=== PATIENT | male | born 1955 | race African-American/Black ===

== ENCOUNTER 2021-05-03 08:21 | Emergency (ER) | payer OTHER ==
[~2021-05-03] VITALS: Ht 177.8 cm; Wt 70.5 kg
[2021-05-03 08:32] VITALS: BP 197/120
[2021-05-03] MEDS ORDERED: AMLO-187 PO (08:37)
--- NOTE | 2021-05-03 08:38 | PHYS DOC ---
General Adult EDM: Chief Complaint: MEDICATION REFILL HPI: HPI: Patient is a 66-year-old male coming in for medication refill his amlodipine. Patient states he has been on amlodipine for many years and has been tolerating it well. States he ran out about 3 days ago. Is in the process of changing primary care providers and is not able to get an appointment for 3 weeks. Patient denies any symptoms. Has his Covid vaccines. Review of Systems: Review of Systems: All other systems within normal limits except for as noted in the HPI Physical Exam: PE: Constitutional: Well developed, well nourished, no acute distress, non-toxic appearance. [] HENT: Normocephalic, atraumatic, bilateral external ears normal, nose normal. [] Eyes: PERRLA, conjunctiva normal, no discharge. [] Neck: No rigidity, supple, no stridor. [] Cardiovascular: Regular rate and rhythm, brisk cap refill [] Lungs & Thorax: Non labored symmetric respirations, no tachypnea or respiratory distress [] Abdomen: Soft, nondistended. Skin: Warm, dry, no erythema, no rash. [] Back: Unremarkable Extremities: No deformities, range of motion grossly intact, no lower extremity edema [] Neurologic: Alert and oriented X 3, no focal deficits noted. [] Psychologic: Affect normal, judgement normal, mood normal. [] EKG: EKG: [] Radiology/Procedures: Radiology/Procedures: [] Heart Score: C/O Chest Pain: No Risk Factors: Risk Factors: DM, Current or recent (<one month) smoker, HTN, HLP, family history of CAD, obesity. Risk Scores: Score 0 - 3: 2.5% MACE over next 6 weeks - Discharge Home Score 4 - 6: 20.3% MACE over next 6 weeks - Admit for Clinical Observation Score 7 - 10: 72.7% MACE over next 6 weeks - Early Invasive Strategies Course & Med Decision Making: Course & Med Decision Making Pertinent Labs and Imaging studies reviewed. (See chart for details) [] Dragon Disclaimer: Dragon Disclaimer: This electronic medical record was generated, in whole or in part, using a voice recognition dictation system. Departure Departure: Impression: Primary Impression: Hypertension Disposition: HOME / SELF CARE / HOMELESS Condition: STABLE Referrals: LAISHA SULLIVAN MD (PCP) Patient Instructions: Amlodipine tablets Scripts Amlodipine Besylate (AMLODIPINE BESYLATE) 10 Mg Tablet 1 TAB PO DAILY for hypertension for 30 Days, #30 TAB 0 Refills Prov: BOY ARREOLA MD 05/03/21 BOY ARREOLA MD May 03, 2021 08:38
== END 2021-05-03 08:48 | disposition home or self-care (01) ==
LOC: ER 08:21
DX: I10 Essential (primary) hypertension (principal); Z76.0 Encounter for issue of repeat prescription
CPT/HCPCS: 99281; 99283

== ENCOUNTER → 2021-06-03 | Outpatient (CLI) | payer OTHER ==
[~2021-06-03] MED LIST: AMLO-187 PO
--- NOTE | 2021-06-03 14:12 | RAD ---
Site ID: [id number] EXAMINATION: US RENAL DUPLEX. HISTORY: Reason: HTN / COMPARISON: None. TECHNIQUE: Renal ultrasound examination was performed, including spectral and waveform Doppler analys is of bilateral renal arteries. FINDINGS: The right kidney is 10.1 cm, and the left kidney 10.5 in length. Cortical echogenicity and thicknes s are within normal limits. There is no hydronephrosis. Doppler evaluation of the renal vasculature was performed. Peak systolic velocity in the aorta is 73 cm/sec. Peak systolic velocity in the proximal right renal artery is 106, and at mid segment 94 and d istally 77 cm/sec and in the proximal left renal artery is 103, and at mid segment 69 and distally 72 cm/s (normal < 180 cm/sec). The right and left renal:aortic ratios are 1.5 and 1.4 respectively (no rmal < 3.5). Waveforms appear normal. Resistive indices in the arcuate arteries in the mid inferior right kidney are 0.66-0.69. On the left side the resistive index is around 0.68. There is a 1.2 cm cystic lesion in the left kidney with the internal septations with no internal vasc ularity demonstrated with color Doppler. There is incidental note of the a 2 cm gallbladder stone seen with no evidence of cholecystitis. IMPRESSION: 1. No hydronephrosis. 2. No evidence of hemodynamically significant renal artery stenosis. 3. Left kidney 1.2 cm from a complicated cyst. 4. Cholelithiasis. No evidence of cholecystitis. Electronically signed by: Rhett Zheng MD (06/03/2021 2:10 PM) [id number]
== END ==
LOC: US 07:39
PROVIDERS: ATTEND Family Medicine
DX: N28.1 Cyst of kidney, acquired (principal); K80.20 Calculus of gallbladder without cholecystitis without obstruction; I10 Essential (primary) hypertension
CPT/HCPCS: 76770

== ENCOUNTER → 2021-07-12 | Outpatient (CLI) | payer OTHER ==
--- NOTE | 2021-07-13 11:43 | CARD ---
MR#: [id number] Date of Study: 07/12/2021 Ordering Physician: LAISHA SULLIVAN, Referring Physician: LAISHA SULLIVAN, Tech: Carolina Pacheco, [facility] APPROVED REPORT EXAM: Two-dimensional and M-mode echocardiogram with Doppler and color Doppler. Other Information Quality : AverageHR: 84bpm INDICATION Hypertension/HCVD RISK FACTORS Smoking 2D DIMENSIONS Left Atrium(2D)2.7 (1.6-4.0cm)IVSd1.2 (0.7-1.1cm) Aortic Root(2D)3.1 (2.0-3.7cm)LVDd4.1 (3.9-5.9cm) LVOT Diameter2.1 (1.8-2.4cm)PWd1.2 (0.7-1.1cm) LVDs2.8 (2.5-4.0cm)FS (%) 32.5 % SV45.7 ml Aortic Valve AoV Peak Rickey.188.5cm/sAoV VTI33.7cm AO Peak GR.11.6mmHgLVOT Peak Rickey.195.9cm/s LVOT VTI 30.16cmAO Mean GR.7mmHg NUHA (VMAX)3.62cv9EPJ (VTI)3.01cm2 Mitral Valve MV E Gidpkzkz48.2cm/sMV E Peak Gr.4mmHg MV DECEL [id number] A Bwyyhbzx69.4cm/s MV E Mean Gr.2mmHgE/A Ratio0.8 Pulmonary Valve PV Peak Qlsuxtsj29.3cm/sPV Peak Grad.4mmHg Tricuspid Valve TR P. Jcwwzdtj590av/sRAP PKQPJZCY8gzOg TR Peak Gr.06yySvRPSW37glFg LEFT VENTRICLE The left ventricle is normal size. There is mild to moderate concentric left ventricular hypertrophy. The left ventricular systolic function is normal and the ejection fraction is within normal range. T he Ejection Fraction is 60-65%. There is normal LV segmental wall motion. Transmitral Doppler flow pa ttern is Grade I-abnormal relaxation pattern. RIGHT VENTRICLE The right ventricle is normal size. There is normal right ventricular wall thickness. The right ventr icular systolic function is normal. ATRIA The left atrium size is normal. The right atrium size is normal. The interatrial septum is intact wit h no evidence for an atrial septal defect or patent foramen ovale as noted on 2-D or Doppler imaging. AORTIC VALVE The aortic valve is thickened but opens well. Doppler and Color Flow revealed no significant aortic r egurgitation. There is no significant aortic valvular stenosis. Calculated aortic valve area is 3.2 c m2 with maximum pressure gradient of 15 mmHg and mean pressure gradient of 7 mmHg. MITRAL VALVE The mitral valve is normal in structure and function. There is no evidence of mitral valve prolapse. There is no mitral valve stenosis. Doppler and Color-flow revealed trace mitral regurgitation. TRICUSPID VALVE The tricuspid valve is normal in structure and function. Doppler and Color Flow revealed trace tricus pid regurgitation with an estimated PAP of 38 mmHg. There is no tricuspid valve stenosis. PULMONIC VALVE The pulmonic valve is not well visualized. Doppler and Color Flow revealed no pulmonic valvular regur gitation. GREAT VESSELS The aortic root is normal in size. The IVC is normal in size and collapses >50% with inspiration. PERICARDIAL EFFUSION There is no evidence of significant pericardial effusion. Critical Notification Critical Value: No <Conclusion> The left ventricle is normal size. The left ventricular systolic function is normal and the ejection fraction is within normal range. The Ejection Fraction is 60-65%. There is mild to moderate concentric left ventricular hypertrophy. Doppler and Color Flow revealed no significant aortic regurgitation. There is no significant aortic valvular stenosis. Doppler and Color-flow revealed trace mitral regurgitation. Doppler and Color Flow revealed trace tricuspid regurgitation with an estimated PAP of 38 mmHg. Signed by : Mike Rodriguez MD Electronically Approved : 07/13/2021 11:43:18
== END ==
LOC: ECHO 15:18
PROVIDERS: ATTEND Family Medicine
DX: I51.7 Cardiomegaly (principal); I10 Essential (primary) hypertension
CPT/HCPCS: 93306

== ENCOUNTER → 2021-10-31 | Outpatient (CLI) | payer OTHER, MEDICAID ==
--- NOTE | 2021-10-31 14:22 | RAD ---
EXAM: RENAL ULTRASOUND CLINICAL HISTORY: Cyst of kidney. COMPARISON: 06/03/2021 TECHNIQUE: Ultrasound examination of the bilateral kidneys and urinary bladder was performed. FINDINGS: The right kidney measures 10.3 x 5.9 x 3.9 cm and the left kidney 11.2 x 4.8 x 5.9 cm. Right kidney: Cortical thickness is within normal limits. No hydronephrosis. Hypoechoic, avascular cyst measuring 1 .3 x 1.2 x 1.3 cm. Left kidney: Cortical thickness is within normal limits. No hydronephrosis. Complex, avascular cyst measuring 1.5 x 1.4 x 1.2 cm previously this was measured at 1.3 x 1.3 x 1.2 cm. Bladder: Visualization of both ureteral jets. No layering debris or readily apparent localized wall t hickening. Prevoid bladder volume of 26 mL. Miscellaneous: Shadowing gallstone incidentally noted which was also seen on the comparison. IMPRESSION: 1. A complex left renal cyst is again demonstrated currently measured at 1.5 x 1.4 x 1.2 cm compared to 1.3 x 1.3 x 1.2 cm on 06/03/2021. Slight differences in measurement are favored mostly technical an d the degree of complexity has not appreciably changed. This could be followed per Endy 2F courtneyli aureliano with repeat ultrasound in 6 months. 2. Small right renal cyst without complex features measuring upper to 1.3 cm. 3. Morphologically unremarkable kidneys and bladder. 4. Redemonstrated gallstone. Electronically signed by: SHEMAR MULLER MD (10/31/2021 2:19 PM) [id number]
== END ==
LOC: US 13:46
PROVIDERS: ATTEND Family Medicine
DX: N28.1 Cyst of kidney, acquired (principal); K80.80 Other cholelithiasis without obstruction
CPT/HCPCS: 76770